=== PATIENT | female | born 1945 | race Hispanic/Latino ===

== ENCOUNTER 2018-04-02 12:33 | Emergency (ER) | payer MEDICARE ==
[~2018-04-02] VITALS: Ht 152.4 cm; Wt 71.7 kg
[2018-04-02] MEDS ORDERED: KETOROLAC TROMETHAMINE 30 MG/ML VIAL IV STA (13:01)
[2018-04-02] MEDS ORDERED: METOCLOPRAMIDE HCL 10 MG/2ML VIAL IV ONE (13:15)
[2018-04-02] MEDS ORDERED: SODIUM CHLORIDE 0.9% 1000ML 1,000 ML IV SCH (13:15)
[2018-04-02] MEDS ORDERED: CEFTRIAXONE SOD 1 GM VIAL IV ONE (14:00)
[2018-04-02] MEDS ORDERED: LORAZEPAM 0.5 MG TAB PO ONE (14:15)
[2018-04-02] MEDS ORDERED: DIAZEPAM 5 MG TAB PO SCH (14:15)
--- NOTE | 2018-04-02 14:59 | Diagnostic Imaging Report ---
Exam: Head CT without contrast History: Headache, neck stiffness Comparison studies: None Technique: Axial images were obtained from the skull base to the vertex. Coronal and sagittal images reconstructed from the axial data. Dose modulation, iterative reconstruction, and/or weight based adjustment of the mA/kV was utilized to reduce the radiation dose to as low as reasonably achievable. Radiation dose: Total DLP: 969 mGy*cm. Estimated effective dose: DLP x 0.015 Intravenous contrast: None Findings: Scalp: No abnormalities. Bones: No fractures, blastic or lytic lesions. Brain sulci: Appropriate for age. Ventricles: Normal in size and configuration. No hydrocephalus. Extra-axial spaces: No masses, no fluid collection. Parenchyma: No mass, acute hemorrhage or acute or chronic cortical vascular insults. Ill-defined and moderately confluent hypodensities in the supratentorial white matter are nonspecific but most compatible with chronic microvascular ischemic changes. Sellar/suprasellar region: No abnormalities. Craniocervical junction: Patent foramen magnum. No Chiari one malformation. Incidental findings: Intraocular lens replacements related to previous cataract surgery. Mild chronic inflammatory changes in the right mastoids. Atherosclerotic calcifications in the carotid siphons, carotid termini and distal left M1 MCA. IMPRESSION: 1. No acute intracranial abnormalities. 2. Moderate chronic microvascular ischemic changes. 3. Moderate intracranial calcified atherosclerosis. Signed by: Dr. Tan Sharp M.D. on 04/02/2018 2:55 PM
[2018-04-02 15:26] VITALS: BP 136/85
== END 2018-04-02 15:28 | disposition home or self-care (01) ==
LOC: FSED 12:33
DX: R51 Headache (principal); R11.0 Nausea; M53.82 Other specified dorsopathies, cervical region; N30.90 Cystitis, unspecified without hematuria; I10 Essential (primary) hypertension; E11.9 Type 2 diabetes mellitus without complications; F32.9 Major depressive disorder, single episode, unspecified
CPT/HCPCS: 70450; 80053; 81003; 85025; 87086; 87186; 99284; J0696; J1885; J2765

== ENCOUNTER 2020-10-15 13:03 | Inpatient (IN) | payer MEDICARE ==
[~2020-10-15] VITALS: Ht 152.4 cm; Wt 71.7 kg
[2020-10-15] MEDS ORDERED: SODIUM CHLORIDE 0.9% 1000ML 1,000 ML IV STA (13:29)
[2020-10-15] MEDS ORDERED: ASPIRIN 81 MG CHEW TAB PO ONE ×2 (13:30→15:00)
[2020-10-15 13:55] LABS: BASOPHILS % 0.4 % (0.0-1.0); EOSINOPHILS # (AUTO) 0.1 (0.0-0.4); EOSINOPHILS % 1.4 % (0.0-6.0); HEMATOCRIT 40.7 % (34.2-44.1); LYMPHOCYTES % 28.3 % (18.0-39.1); MEAN CORPUSCULAR HEMOGLOBIN 30.4 pg (28-32); MEAN CORPUSCULAR HGB CONC 34.4 g/dL (31-35); MEAN CORPUSCULAR VOLUME 88.3 fL (81-99); MONOCYTES # (AUTO) 0.4 (0.2-0.8); MONOCYTES % 5.7 % (4.4-11.3); NEUTROPHILS # (AUTO) 4.6 (2.1-6.9); NEUTROPHILS % 63.8 % (38.7-80.0); PLATELET COUNT 180 x10e3/uL (140-360); RED BLOOD COUNT 4.61 x10e6/uL (3.6-5.1)
[2020-10-15 14:15] LABS: ALANINE AMINOTRANSFERASE 23 IU/L (0-55); ALBUMIN 4.2 g/dL (3.5-5.0); ALBUMIN/GLOBULIN RATIO 1.1 (0.8-2.0); ALKALINE PHOSPHATASE 98 IU/L (40-150); BLOOD UREA NITROGEN 14 mg/dL (7-26); BUN/CREATININE RATIO 19 (6-25); CALCIUM 9.4 mg/dL (8.4-10.2); CARBON DIOXIDE 27 mmol/L (22-29); CHLORIDE 105 mmol/L (98-107); CREATINE KINASE 69 IU/L (29-168); CREATININE, SERUM 0.73 mg/dL (0.57-1.11); EST GLOMERULAR FILTRATION RATE > 60 ML/MIN (60-); GLUCOSE 122 mg/dL (74-118); SODIUM 143 mmol/L (136-145)
[2020-10-15] MEDS ORDERED: ACETAMINOPHEN 325 MG TAB PO PRN (16:30)
[2020-10-15] MEDS ORDERED: DEXTROSE 50% SYRINGE 50 ML IV PRN (16:30)
[2020-10-15] MEDS ORDERED: ONDANSETRON HCL INJ 2MG/ML 2ML 2 MG/ML VIAL IV PRN (16:30)
[2020-10-15] MEDS ORDERED: HYDRALAZINE HCL 20 MG/ML VIAL IV PRN (16:30)
[2020-10-15] MEDS ORDERED: ENOXAPARIN 30 MG/0.3 ML SYR SC SCH (17:00)
[2020-10-15] MEDS: INSULIN REGULAR, HUMAN 100 UNIT/1 ML 3ML VIAL SQ SCH ×2 (18:36→20:27)
[2020-10-15 20:00] VITALS: BP 160/85
[2020-10-15 20:03] VITALS: BP 160/85
[2020-10-15 20:12] VITALS: BP 160/85
[2020-10-15] MEDS ORDERED: LEVOTHYROXINE50 MCG PO (20:27)
[2020-10-15] MEDS ORDERED: TIZANIDINE HCL4 MG PO (20:27)
[2020-10-15] MEDS ORDERED: HYDROCHLOROTHIA25 MG PO (20:27)
[2020-10-15] MEDS ORDERED: PRAVASTATIN SOD20 MG PO (20:27)
[2020-10-15] MEDS ORDERED: POTASSIUM CHLO20 ME1 PO (20:27)
[2020-10-15] MEDS ORDERED: PROVENTIL HFA6.7 GM INH (20:27)
[2020-10-15] MEDS ORDERED: ACETAMINOPHEN325 M1 PO (20:27)
[2020-10-15] MEDS ORDERED: ATENOLOL50 MG PO (20:27)
[2020-10-15] MEDS ORDERED: ABILIFY5 MG PO (20:27)
[2020-10-15] MEDS ORDERED: METFORMIN HCL500 MG PO (20:27)
[2020-10-15] MEDS ORDERED: SERTRALINE HCL100 MG PO (20:27)
[2020-10-15] MEDS: METOPROLOL TARTRATE 50 MG TAB PO SCH (22:19)
[2020-10-16] VITALS: BP 161/99
[2020-10-16 04:00] VITALS: BP 146/82
[2020-10-16] MEDS: METOPROLOL TARTRATE 50 MG TAB PO SCH ×2 (05:18→14:06)
[2020-10-16] MEDS ORDERED: LEVOTHYROXINE SODIUM 50 MCG TAB PO SCH (06:00)
[2020-10-16 06:10] LABS: BASOPHILS % 0.6 % (0.0-1.0); EOSINOPHILS # (AUTO) 0.1 (0.0-0.4); EOSINOPHILS % 1.5 % (0.0-6.0); HEMATOCRIT 43.4 % (34.2-44.1); HEMOGLOBIN 14.6 g/dL (12.0-16.0); LYMPHOCYTES # (AUTO) 2.3 (1.0-3.2); LYMPHOCYTES % 31.7 % (18.0-39.1); MEAN CORPUSCULAR HEMOGLOBIN 29.7 pg (28-32); MEAN CORPUSCULAR HGB CONC 33.6 g/dL (31-35); MEAN CORPUSCULAR VOLUME 88.2 fL (81-99); MONOCYTES # (AUTO) 0.4 (0.2-0.8); MONOCYTES % 5.3 % (4.4-11.3); NEUTROPHILS # (AUTO) 4.4 (2.1-6.9); NEUTROPHILS % 60.6 % (38.7-80.0); PLATELET COUNT 57 x10e3/uL (140-360); RED BLOOD COUNT 4.92 x10e6/uL (3.6-5.1)
[2020-10-16 06:30] LABS: ALANINE AMINOTRANSFERASE 22 IU/L (0-55); ALKALINE PHOSPHATASE 90 IU/L (40-150); BLOOD UREA NITROGEN 13 mg/dL (7-26); BUN/CREATININE RATIO 18 (6-25); CALCIUM 9.5 mg/dL (8.4-10.2); CARBON DIOXIDE 25 mmol/L (22-29); CHLORIDE 103 mmol/L (98-107); CREATININE, SERUM 0.72 mg/dL (0.57-1.11); EST GLOMERULAR FILTRATION RATE > 60 ML/MIN (60-); GLUCOSE 126 mg/dL (74-118); SODIUM 140 mmol/L (136-145)
[2020-10-16 06:49] LABS: CREATINE KINASE MB 1.3 ng/mL (0-5.0)
[2020-10-16 07:49] VITALS: BP 157/87
[2020-10-16] MEDS: INSULIN REGULAR, HUMAN 100 UNIT/1 ML 3ML VIAL SQ SCH ×2 (07:58→11:41)
[2020-10-16 08:28] VITALS: BP 157/87
[2020-10-16] MEDS ORDERED: FAMOTIDINE 20 MG TAB PO SCH (09:00)
[2020-10-16] MEDS ORDERED: SERTRALINE HCL 50 MG TAB PO SCH (09:00)
[2020-10-16 11:23] VITALS: BP 162/93
[2020-10-16 12:37] LABS: BASOPHILS # (AUTO) 0.1 (0.0-0.1); BASOPHILS % 0.7 % (0.0-1.0); EOSINOPHILS # (AUTO) 0.1 (0.0-0.4); EOSINOPHILS % 1.6 % (0.0-6.0); HEMATOCRIT 43.5 % (34.2-44.1); HEMOGLOBIN 14.7 g/dL (12.0-16.0); LYMPHOCYTES % 27.2 % (18.0-39.1); MEAN CORPUSCULAR HGB CONC 33.8 g/dL (31-35); MEAN CORPUSCULAR VOLUME 88.8 fL (81-99); MONOCYTES # (AUTO) 0.4 (0.2-0.8); MONOCYTES % 5.7 % (4.4-11.3); NEUTROPHILS # (AUTO) 4.8 (2.1-6.9); NEUTROPHILS % 64.5 % (38.7-80.0)
[2020-10-16 12:41] LABS: PLATELET COUNT 160 x10e3/uL (140-360)
[2020-10-16] MEDS ORDERED: ATENOLOL50 MG PO (15:07)
[2020-10-16] MEDS ORDERED: ELIQUIS5 MG PO (15:07)
[2020-10-16 15:35] VITALS: BP 151/97
== END 2020-10-16 16:32 | disposition home or self-care (01) | DRG 310 ==
LOC: ER 13:35 → ERHOLD 14:48 → MED/SURG3 19:50
PROVIDERS: ADMIT Internal Medicine; ATTEND Internal Medicine
DX: I48.91 Unspecified atrial fibrillation (principal); I10 Essential (primary) hypertension; E11.9 Type 2 diabetes mellitus without complications; F41.9 Anxiety disorder, unspecified; F32.9 Major depressive disorder, single episode, unspecified; K21.9 Gastro-esophageal reflux disease without esophagitis; E03.9 Hypothyroidism, unspecified; Z20.822 Contact with and (suspected) exposure to COVID-19; E78.5 Hyperlipidemia, unspecified; G47.30 Sleep apnea, unspecified; I11.0 Hypertensive heart disease with heart failure; I50.9 Heart failure, unspecified
CPT/HCPCS: 36415; 71045; 80053; 82550; 82553; 82948; 83036; 83880; 84443; 84484; 85025; 93005; 93306; 96372; 99284; J1650; J1817; J7030; U0002

== ENCOUNTER 2022-11-08 17:51 | Emergency (ER) | payer MEDICARE ==
[~2022-11-08] VITALS: Ht 144.8 cm; Wt 65.1 kg
[~2022-11-08 17:51] MED LIST: ABILIFY5 MG PO; ACETAMINOPHEN325 M1 PO; ATENOLOL50 MG PO; ELIQUIS5 MG PO; HYDROCHLOROTHIA25 MG PO; LEVOTHYROXINE50 MCG PO; METFORMIN HCL500 MG PO; POTASSIUM CHLO20 ME1 PO; PRAVASTATIN SOD20 MG PO; PROVENTIL HFA6.7 GM INH; SERTRALINE HCL100 MG PO; TIZANIDINE HCL4 MG PO
== END 2022-11-08 18:58 | disposition home or self-care (01) ==
LOC: FSED 17:55
DX: I83.892 Varicose veins of left lower extremity with other complications (principal); I10 Essential (primary) hypertension; E11.9 Type 2 diabetes mellitus without complications; I50.9 Heart failure, unspecified; E03.9 Hypothyroidism, unspecified; I48.91 Unspecified atrial fibrillation; F41.9 Anxiety disorder, unspecified; K21.9 Gastro-esophageal reflux disease without esophagitis; G47.30 Sleep apnea, unspecified
CPT/HCPCS: 96372; 99283

== ENCOUNTER 2022-11-15 16:52 | Emergency (ER) | payer MEDICARE, OTHER ==
[~2022-11-15] VITALS: Ht 144.8 cm; Wt 64.4 kg
== END 2022-11-15 17:18 | disposition home or self-care (01) ==
LOC: FSED 17:00
DX: Z48.02 Encounter for removal of sutures (principal)
CPT/HCPCS: 99282

== ENCOUNTER 2024-06-19 19:56 | Emergency (ER) | payer MEDICARE, OTHER ==
[~2024-06-19] VITALS: Ht 144.8 cm; Wt 65.8 kg
[~2024-06-19 19:56] MED LIST changes: +ACIDOPHILUS1 EAC1 PO; +AUGMENTIN 500-1 EACH PO
[2024-06-19 20:05] VITALS: PULSE 90; RESP 16; TEMP 98; O2SAT 100
[2024-06-19 20:26] LABS: BASOPHILS % 0.3 % (0.0-1.0); EOSINOPHILS # (AUTO) 0.1 (0.0-0.4); EOSINOPHILS % 1.6 % (0.0-6.0); HEMATOCRIT 37.3 % (34.2-44.1); LYMPHOCYTES # (AUTO) 1.4 (1.0-3.2); LYMPHOCYTES % 22.6 % (18.0-39.1); MEAN CORPUSCULAR HEMOGLOBIN 29.6 pg (28-32); MEAN CORPUSCULAR HGB CONC 32.2 g/dL (31-35); MEAN CORPUSCULAR VOLUME 92.1 fL (81-99); MONOCYTES # (AUTO) 0.4 (0.2-0.8); NEUTROPHILS # (AUTO) 4.4 (2.1-6.9); NEUTROPHILS % 69.3 % (38.7-80.0); PLATELET COUNT 139 x10e3/uL (140-360); RED BLOOD COUNT 4.05 x10e6/uL (3.6-5.1); RED CELL DISTRIBUTION WIDTH 13.2 % (11.7-14.4); WHITE BLOOD COUNT 6.38 x10e3/uL (4.8-10.8)
[2024-06-19 20:37] LABS: INR 3.57; PROTHROMBIN TIME 37.3 seconds (11.9-14.5)
[2024-06-19 20:38] LABS: PARTIAL THROMBOPLASTIN TIME 54.3 seconds (23.8-35.5)
[2024-06-19 20:44] LABS: ANION GAP 15.9 mmol/L (8-16); CALCIUM 9.1 mg/dL (8.4-10.2); CREATININE, SERUM 0.95 mg/dL (0.57-1.11); POTASSIUM 3.9 mmol/L (3.5-5.1)
== END 2024-06-19 21:40 | disposition home or self-care (01) ==
LOC: ER 19:59
DX: S00.83XA Contusion of other part of head, initial encounter (principal); S00.33XA Contusion of nose, initial encounter; R51.9 Headache, unspecified; I83.892 Varicose veins of left lower extremity with other complications; W18.39XA Other fall on same level, initial encounter; Y93.01 Activity, walking, marching and hiking; Y92.89 Other specified places as the place of occurrence of the external cause; Z79.01 Long term (current) use of anticoagulants; E11.65 Type 2 diabetes mellitus with hyperglycemia; I10 Essential (primary) hypertension; E03.9 Hypothyroidism, unspecified
CPT/HCPCS: 36415; 70450; 70486; 72125; 80048; 85025; 85610; 85730; 99284